=== PATIENT | female | born 1955 | race Caucasian/White ===

== ENCOUNTER 2019-08-30 12:09 | Emergency (ER) | payer OTHER ==
[~2019-08-30] VITALS: Ht 167.6 cm; Wt 73.9 kg
[2019-08-30 12:35] VITALS: Ht 167.6 cm; Wt 73.9 kg
[2019-08-30 14:46] LABS: BASOPHIL % 0.3 % (0-2); PLATELET COUNT 205 x10^3mcL (130-400); RED CELL DISTRIBUTION WIDTH 13.5 % (11.5-14.5)
[2019-08-30 15:10] LABS: CALCIUM 8.7 mg/dL (8.5-10.1); CARBON DIOXIDE 22.8 mmol/L (21-32); CHLORIDE SERUM 95 mmol/L (98-107); GFR1 60 mL/min; GLUCOSE SERUM 242 mg/dL (74-106); POTASSIUM SERUM 4.6 mmol/L (3.5-5.1); SODIUM SERUM 129 mmol/L (136-145)
[2019-08-30 15:24] LABS: ALBUMIN 3.3 g/dL (3.4-5.0); ALKALINE PHOSPHATASE 86 U/L (46-116); ALT/SGPT 60 U/L (14-59); AMYLASE 43 U/L (25-115); AST/SGOT 48 U/L (15-37); BILIRUBIN TOTAL 0.5 mg/dL (0.20-1.00); LIPASE 239 IU/L (73-393); TOTAL PROTEIN, SERUM 7.1 g/dL (6.4-8.2)
[2019-08-30 17:11] VITALS: BP 120/48
== END 2019-08-30 17:11 | disposition home or self-care (01) ==
LOC: ED 12:09
PROVIDERS: Emergency Medicine
DX: E87.1 Hypo-osmolality and hyponatremia (principal); R10.811 Right upper quadrant abdominal tenderness; I10 Essential (primary) hypertension; E11.9 Type 2 diabetes mellitus without complications; E78.00 Pure hypercholesterolemia, unspecified
CPT/HCPCS: J1885; Q0092

== ENCOUNTER 2019-09-03 12:11 | Inpatient (IN) | payer OTHER, SELFPAY ==
[~2019-09-03] VITALS: Ht 162.6 cm; Wt 72.2 kg
[2019-09-03 12:18] VITALS: Ht 162.6 cm; Wt 72.2 kg
[2019-09-03 13:26] LABS: ALKALINE PHOSPHATASE 90 U/L (46-116); ALT/SGPT 46 U/L (14-59); AST/SGOT 33 U/L (15-37); BASOPHIL % 0.2 % (0-2); BILIRUBIN TOTAL 0.9 mg/dL (0.20-1.00); CARBON DIOXIDE 22.5 mmol/L (21-32); CHLORIDE SERUM 93 mmol/L (98-107); CREATININE SERUM 0.9 mg/dL (0.6-1.0); GFR1 > 60 mL/min; GLUCOSE SERUM 249 mg/dL (74-106); LIPASE 119 IU/L (73-393); PLATELET COUNT 295 x10^3mcL (130-400); RED CELL DISTRIBUTION WIDTH 13.2 % (11.5-14.5); SODIUM SERUM 127 mmol/L (136-145); TOTAL PROTEIN, SERUM 7.3 g/dL (6.4-8.2)
[2019-09-03 13:26] LABS: UA SPECIFIC GRAVITY <=1.005 (1.005-1.035); microscopic required? YES; urine erythrocyte TRACE (NEGATIVE)
[2019-09-03 13:27] LABS: ALBUMIN 3.3 g/dL (3.4-5.0)
[2019-09-03 13:31] LABS: CALCIUM 8.8 mg/dL (8.5-10.1)
[2019-09-03] MEDS ORDERED: FORTAMET1000 MG PO (15:06)
[2019-09-03] MEDS ORDERED: ADULT LOW DOSE81 MG PO (15:09)
[2019-09-03] MEDS ORDERED: GLIPIZIDE XL5 M2 PO (15:09)
[2019-09-03] MEDS ORDERED: PEPCID AC20 M2 PO (15:10)
[2019-09-03] MEDS ORDERED: TOPROL XL25 MG PO (15:15)
[2019-09-03 15:26] LABS: C REACTIVE PROTEIN 4.6 mg/dL (<=0.9)
[2019-09-03 16:24] VITALS: BP 125/46
[2019-09-03 16:34] LABS: CHOLESTEROL/HDL RATIO 4.9
[2019-09-03 16:41] LABS: T3 TOTAL 1.31 ng/mL
[2019-09-03 16:57] LABS: FREE T4 1.6 ng/dL (0.76-1.46); FREE THYROXINE INDEX 4.1 ug/dL (1.4-4.5); T4(THYROXINE) 13.1 ug/dL (4.7-13.3)
[2019-09-03 17:45] LABS: AMPHETAMINE QUAL UR NONE DETECTED (See below)
[2019-09-03 21:30] VITALS: BP 130/76
[2019-09-04 06:15] VITALS: BP 133/74
[2019-09-04 07:12] LABS: BASOPHIL % 0.3 % (0-2); PLATELET COUNT 302 x10^3mcL (130-400); RED CELL DISTRIBUTION WIDTH 13.2 % (11.5-14.5)
[2019-09-04 07:50] LABS: CALCIUM 8.8 mg/dL (8.5-10.1); CHLORIDE SERUM 97 mmol/L (98-107); CREATININE SERUM 0.9 mg/dL (0.6-1.0); GFR1 > 60 mL/min; GLUCOSE SERUM 147 mg/dL (74-106); MAGNESIUM 1.9 mg/dL (1.8-2.4); POTASSIUM SERUM 4.1 mmol/L (3.5-5.1); SODIUM SERUM 130 mmol/L (136-145)
[2019-09-04 08:43] VITALS: BP 140/74
[2019-09-04 12:30] VITALS: BP 119/66
[2019-09-04 21:05] VITALS: BP 122/70
[2019-09-05 06:26] VITALS: BP 138/72
[2019-09-05 06:55] LABS: BASOPHIL % 0.3 % (0-2); PLATELET COUNT 391 x10^3mcL (130-400); RED CELL DISTRIBUTION WIDTH 13.3 % (11.5-14.5)
[2019-09-05 07:26] LABS: ALKALINE PHOSPHATASE 102 U/L (46-116); ALT/SGPT 41 U/L (14-59); AST/SGOT 23 U/L (15-37); BILIRUBIN TOTAL 0.86 mg/dL (0.20-1.00); CALCIUM 9.1 mg/dL (8.5-10.1); CARBON DIOXIDE 24.3 mmol/L (21-32); CHLORIDE SERUM 100 mmol/L (98-107); CREATININE SERUM 0.8 mg/dL (0.6-1.0); GFR1 > 60 mL/min; GLUCOSE SERUM 182 mg/dL (74-106); LACTIC DEHYDROGENASE (LDH) 214 U/L (100-190); PHOSPHOROUS 3.1 mg/dL (2.5-4.9); POTASSIUM SERUM 4.8 mmol/L (3.5-5.1); SODIUM SERUM 134 mmol/L (136-145); TOTAL PROTEIN, SERUM 7.4 g/dL (6.4-8.2)
[2019-09-05 07:30] LABS: ALBUMIN 3.1 g/dL (3.4-5.0); C REACTIVE PROTEIN 13.1 mg/dL (<=0.9)
[2019-09-05 08:53] VITALS: BP 121/72
[2019-09-05 10:03] LABS: ERYTHROCYTE SED RATE 68 mm/hr (0-30)
[2019-09-05 12:44] VITALS: BP 113/59
[2019-09-05 16:32] VITALS: BP 142/78
[2019-09-05 21:00] VITALS: BP 145/74
[2019-09-06 04:48] VITALS: BP 146/78
[2019-09-06 07:30] VITALS: BP 112/61
[2019-09-06 09:00] LABS: BASOPHIL % 0.3 % (0-2); RED CELL DISTRIBUTION WIDTH 12.7 % (11.5-14.5)
[2019-09-06 09:07] LABS: CALCIUM 9.2 mg/dL (8.5-10.1); CARBON DIOXIDE 20.7 mmol/L (21-32); CHLORIDE SERUM 99 mmol/L (98-107); CREATININE SERUM 0.8 mg/dL (0.6-1.0); GFR1 > 60 mL/min; GLUCOSE SERUM 197 mg/dL (74-106); POTASSIUM SERUM 4.3 mmol/L (3.5-5.1); SODIUM SERUM 134 mmol/L (136-145)
[2019-09-06 09:19] LABS: PLATELET COUNT 437 x10^3mcL (130-400)
[2019-09-06] MEDS ORDERED: ELIQUIS2.5 MG PO (11:13)
[2019-09-06 12:26] VITALS: BP 112/61
== END 2019-09-06 14:31 | disposition home or self-care (01) | DRG 871 ==
LOC: ED 12:11 → DU 14:47
PROVIDERS: Emergency Medicine; ADMIT Internal Medicine
DX: A41.89 Other specified sepsis (principal); U07.1 COVID-19; J12.89 Other viral pneumonia; E87.2 Acidosis; E87.1 Hypo-osmolality and hyponatremia; I10 Essential (primary) hypertension; E78.5 Hyperlipidemia, unspecified; E11.65 Type 2 diabetes mellitus with hyperglycemia; K76.0 Fatty (change of) liver, not elsewhere classified; E87.8 Other disorders of electrolyte and fluid balance, not elsewhere classified; E78.00 Pure hypercholesterolemia, unspecified; Z79.899 Other long term (current) drug therapy
CPT/HCPCS: 36600; 82962; 83880; 84439; 85378; 87804; 94150; G0378; J0456; J1644; J1885; J1940; J2060; J2405; J3490; J7030; J7040; Q0092